=== PATIENT | female | born 1970 | race African-American/Black ===

== ENCOUNTER 2018-03-17 19:10 | Emergency (ER) | payer SELFPAY ==
[2018-03-17] MEDS ORDERED: TRAMADOL HCL 50 MG TABLET PO ONE (21:34)
[2018-03-17 22:06] VITALS: BP 184/104
== END 2018-03-17 22:03 | disposition home or self-care (01) ==
LOC: ER 19:10
DX: Z53.21 Procedure and treatment not carried out due to patient leaving prior to being seen by health care provider (principal); R09.89 Other specified symptoms and signs involving the circulatory and respiratory systems; R10.2 Pelvic and perineal pain

== ENCOUNTER 2018-03-27 09:32 | Emergency (ER) | payer SELFPAY ==
[2018-03-27 09:51] VITALS: BP 125/78
--- NOTE | 2018-03-27 10:12 | ER Document Report ---
ED General - General Chief Complaint: High Blood Pressure Stated Complaint: BLOOD PRESSURE ISSUE Time Seen by Provider: 03/27/18 10:12 Mode of Arrival: Ambulatory Information source: Patient, [facility] Records Notes: 48-year-old female with asthma, hypertension, schizophrenia presents with concern for elevated blood pressure that occurred yesterday. Patient states that she became very upset at work yesterday and remained upset all day and when she took her blood pressure at home she had systolic readings of 170. Patient states that she took her blood pressure medication which helped her elevated blood pressure but came in today to make sure that her blood pressure was normal. Patient denies headache, visual changes, slurred speech, chest pain, shortness of breath, difficulty with ambulation, weakness. TRAVEL OUTSIDE OF THE [place] IN LAST 30 DAYS: No - HPI Onset: Yesterday Onset/Duration: Gone Quality of pain: No pain Severity: None Associated symptoms: None Exacerbated by: Denies Relieved by: Denies Similar symptoms previously: Yes Recently seen / treated by doctor: Yes - Related Data Allergies/Adverse Reactions: ketorolac tromethamine [From Toradol] Allergy (Intermediate, Verified 03/27/18 10:04) Urticaria Penicillins Allergy (Intermediate, Verified 03/27/18 10:04) Hives ibuprofen Allergy (Verified 03/27/18 10:04) Past Medical History - General Information source: Patient - Social History Smoking Status: Never Smoker Frequency of alcohol use: None Drug Abuse: None Lives with: Family Family History: Reviewed & Not Pertinent, CAD Patient has suicidal ideation: No Patient has homicidal ideation: No - Past Medical History Cardiac Medical History: Reports: Hx Hypertension Pulmonary Medical History: Reports: Hx Asthma Neurological Medical History: Denies: Hx Seizures Renal/ Medical History: Reports: Hx Ovarian Cysts. Denies: Hx Peritoneal Dialysis GI Medical History: Denies: Hx Hepatitis Musculoskeletal Medical History: Reports Hx Arthritis, Reports Hx Musculoskeletal Trauma Psychiatric Medical History: Reports: Hx Anxiety, Hx Bipolar Disorder, Hx Depression, Hx Schizophrenia Traumatic Medical History: Reports: Hx Fractures Infectious Medical History: Denies: Hx Hepatitis Past Surgical History: Reports: Hx Section - c- sect x1, Hx Cholecystectomy - Immunizations Immunizations up to date: Yes Hx Diphtheria, Pertussis, Tetanus Vaccination: Yes Review of Systems - Review of Systems Notes: REVIEW OF SYSTEMS: CONSTITUTIONAL : Denies fever, chills, or sweats. Denies recent illness. Denies weight loss, recent hospitalizations. EENT: Denies visual changes, eye pain. Denies sore throat, oral lesions, difficulty swallowing. CARDIOVASCULAR: Denies chest pain. Denies palpitations. Denies lower extremity edema. RESPIRATORY: Denies cough. Denies shortness of breath, wheezing. GASTROINTESTINAL: Denies abdominal pain or distention. Denies nausea, vomiting, or diarrhea. Denies blood in vomitus, stools, or per rectum. Denies black, tarry stools. Denies constipation. GENITOURINARY: Denies difficulty urinating, painful urination, frequency, blood in urine, or vaginal discharge. MUSCULOSKELETAL: Denies back or neck pain or stiffness. Denies joint pain or swelling. SKIN: Denies rash, lesions or sores. HEMATOLOGIC : Denies easy bruising or bleeding. LYMPHATIC: Denies swollen glands. NEUROLOGICAL: Denies confusion or altered mental status. Denies loss of consciousness. Denies dizziness or lightheadedness. Denies headache. Denies weakness or paralysis. Denies problems difficulty with ambulation, slurred speech. Denies sensory loss, numbness, or tingling. Denies seizures. PSYCHIATRIC: Denies anxiety or stress. Denies depression, suicidal ideation, or homicidal ideation. Denies visual or auditory hallucinations. Physical Exam - Vital signs Vitals: Temp Pulse Resp BP Pulse Ox 98.2 F 77 16 125/78 100 03/27/18 09:47 03/27/18 09:47 03/27/18 09:47 03/27/18 09:47 03/27/18 09:47 - Notes Notes: PHYSICAL EXAMINATION: GENERAL: Well-appearing, well-nourished and in no acute distress. HEAD: Atraumatic, normocephalic. EYES: Pupils equal round and reactive to light, extraocular movements intact, conjunctiva are normal. ENT: Nares patent, oropharynx clear without exudates. Moist mucous membranes. NECK: Normal range of motion, supple without lymphadenopathy LUNGS: Breath sounds clear to auscultation bilaterally and equal. No wheezes rales or rhonchi. HEART: Regular rate and rhythm without murmurs ABDOMEN: Soft, nontender, nondistended abdomen. No guarding, no rebound. No masses appreciated. Female : deferred Musculoskeletal: Normal range of motion, no pitting or edema. No cyanosis. NEUROLOGICAL: Cranial nerves grossly intact. Normal speech, normal gait. Normal sensory, motor exams PSYCH: Normal mood, normal affect. SKIN: Warm, Dry, normal turgor, no rashes or lesions noted. Course - Re-evaluation Re-evalutation: Temp Pulse Resp BP Pulse Ox 98.2 F 77 16 125/78 100 03/27/18 09:47 03/27/18 09:47 03/27/18 09:47 03/27/18 09:47 03/27/18 09:47 03/27/18 10:22 48-year-old female presents with concern for elevated blood pressure reading yesterday. Vital signs reviewed upon arrival and within normal limits today. Patient has a normal physical exam and has no current complaints. Blood pressure reading was 125/78. Patient was evaluated and treated as appropriate for the patient's presenting symptoms and complaint, with consideration of any critical or life threatening conditions that may be associated with their obtained history and exam as noted above. All results were discussed with carley beyer. Patient provided the opportunity to ask questions, and express concerns. Patient was educated on treatments based on their presumed diagnosis as noted above. At this time we will discharge the patient with return precautions and follow-up recommendations. Verbal discharge instructions given a the bedside. Medication warnings reviewed. Patient is in agreement with this plan and has verbalized understanding of return precautions. After careful consideration I feel that that patient can be safely discharged from the emergency department, they were advised to followup with a primary c are physician in 2-3 days. Dictation on this chart was performed using voice recognition software and may result in unintended grammatical, spelling, syntax or errors. - Vital Signs Vital signs: Temp Pulse Resp BP Pulse Ox 98.2 F 77 16 125/78 100 03/27/18 09:47 03/27/18 09:47 03/27/18 09:47 03/27/18 09:47 03/27/18 09:47 Discharge - Discharge Clinical Impression: Concern for elevated blood pressure Hypertension Qualifiers: Hypertension type: unspecified Qualified Code(s): I10 - Essential (primary) hypertension Condition: Good Disposition: HOME, SELF-CARE Instructions: High Blood Pressure ([facility]) Additional Instructions: Follow up with your [id number] hours for further care or return to the ED IMMEDIATELY if symptoms worsen or you have any concerns. If you cannot afford to follow up with your primary care physician a list of low cost clinics have been provided at the end of your discharge papers as well. Most prescribed medications have multiple side effects. The safest thing to do is when filling your prescription speak to your pharmacist regarding possible interactions with your normal home medications and over the counter medications such as Ibuprofen, Tylenol, Benadryl. If you experience any symptoms that cause you discomfort or concern you should discontinue the medication immediately and return to the emergency room or call your primary care physician.
== END 2018-03-27 10:19 | disposition home or self-care (01) ==
LOC: ER 09:32
DX: I10 Essential (primary) hypertension (principal); Z88.6 Allergy status to analgesic agent; Z88.0 Allergy status to penicillin; Z90.49 Acquired absence of other specified parts of digestive tract
CPT/HCPCS: 99283

== ENCOUNTER 2018-05-28 10:21 | Emergency (ER) | payer SELFPAY ==
[2018-05-28] MEDS ORDERED: ONDANSETRON 4 MG TAB.RAPDIS PO ONE (11:01)
--- NOTE | 2018-05-28 11:03 | ER Document Report ---
ED Medical Screen (RME) - General Chief Complaint: Abdominal Pain Stated Complaint: ABDOMINAL PAIN Time Seen by Provider: 05/28/18 10:56 Primary Care Provider: ARTHUR JENSEN PA-C [Primary Care Provider] - Follow up as needed Mode of Arrival: Ambulatory Information source: Patient TRAVEL OUTSIDE OF THE [place] IN LAST 30 DAYS: No - HPI Patient complains to provider of: abdo pain Notes: 05/28/18 11:02 Patient with complaints of upper abdominal pain. Pains been intermittent for the last week. She has nausea, no vomiting or diarrhea. No dysuria. No chest pain or shortness of breath. She had her gallbladder removed. She denies any pain currently. She states that she has been taking ibuprofen which did seem to help some with the pain. She is wanted to make sure she did not have anything abnormal going on. She does have a history of pancreatitis. Exam Nontoxic, no distress. No focal abdominal tenderness on limited abdominal exam at this time. Plan CBC, CMP, lipase, urine, urine . Since she is not having tenderness at this moment, will await lab work and further evaluation to determine if imaging is indicated at this time. Jamie RASHID. An initial examination was made on the patient as part of the triage process, and it was determined a more comprehensive evaluation was necessary. Initial labs were ordered and patient was transferred to another provider in the ED who assumed care and finished evaluation and plan. - Related Data Allergies/Adverse Reactions: ketorolac tromethamine [From Toradol] Allergy (Intermediate, Verified 05/28/18 10:25) Urticaria Penicillins Allergy (Intermediate, Verified 05/28/18 10:25) Hives ibuprofen Allergy (Verified 05/28/18 10:25) Past Medical History - Past Medical History Cardiac Medical History: Reports: Hx Hypertension Pulmonary Medical History: Reports: Hx Asthma Neurological Medical History: Denies: Hx Seizures Renal/ Medical History: Reports: Hx Ovarian Cysts. Denies: Hx Peritoneal Dialysis GI Medical History: Denies: Hx Hepatitis Musculoskeltal Medical History: Reports Hx Arthritis, Reports Hx Musculoskeletal Trauma Psychiatric Medical History: Reports: Hx Anxiety, Hx Bipolar Disorder, Hx Depression, Hx Schizophrenia Traumatic Medical History: Reports: Hx Fractures Infectious Medical History: Denies: Hx Hepatitis Past Surgical History: Reports: Hx Section - c- sect x1, Hx Cholecystectomy - Immunizations Immunizations up to date: Yes Hx Diphtheria, Pertussis, Tetanus Vaccination: Yes Physical Exam - Vital signs Vitals: Temp Pulse Resp BP Pulse Ox 98.4 F 73 16 145/91 H 99 05/28/18 10:05/28/18 10:29 05/28/18 10:05/28/18 10:05/28/18 10:29 Course - Vital Signs Vital signs: Temp Pulse Resp BP Pulse Ox 98.4 F 73 16 145/91 H 99 05/28/18 10:29 05/28/18 10:29 05/28/18 10:29 05/28/18 10:29 05/28/18 10:29 Doctor's Discharge - Discharge Referrals: ARTHUR JENSEN, [facility] [Primary Care Provider] - Follow up as needed
[2018-05-28 11:52] LABS: ABSOLUTE EOSINOPHILS # (AUTO) 0.1 10^3/uL (0.0-0.6); ABSOLUTE LYMPHOCYTES (AUTO) 3.2 10^3/uL (0.5-4.7); ABSOLUTE MONOCYTES (AUTO) 0.5 10^3/uL (0.1-1.4); BASOPHILS % (AUTO) 0.5 % (0-2); EOSINOPHILS % (AUTO) 1.5 % (0-6); HEMATOCRIT 38.3 % (36.0-47.0); LYMPHOCYTES % (AUTO) 46.6 % (13-45); MEAN CORPUSCULAR HEMOGLOBIN 28.8 pg (27.0-33.4); MEAN CORPUSCULAR HGB CONC 33.9 g/dL (32.0-36.0); MEAN CORPUSCULAR VOLUME 85 fl (80-97); MONOCYTES % (AUTO) 7.7 % (3-13); PLATELET COUNT 404 10^3/uL (150-450); SEGMENTED NEUTROPHILS % (AUTO) 43.7 % (42-78); TOTAL CELLS COUNTED % (AUTO) 100 %; WHITE BLOOD COUNT 6.8 10^3/uL (4.0-10.5)
[2018-05-28 11:55] LABS: APPEARANCE,URINE SLIGHTLY-CLOUDY; BILIRUBIN,URINE NEGATIVE (NEGATIVE); COLOR,URINE YELLOW; GLUCOSE, URINE NEGATIVE (NEGATIVE); KETONES,URINE NEGATIVE (NEGATIVE); LEUKOCYTE ESTERASE,URINE TRACE (NEGATIVE); NITRITE,URINE NEGATIVE (NEGATIVE); PROTEIN,URINE NEGATIVE (NEGATIVE); URINE SPECIFIC GRAVITY 1.028
[2018-05-28 12:11] LABS: ALANINE AMINOTRANSFERASE 23 U/L (9-52); ALBUMIN 3.8 g/dL (3.5-5.0); ALKALINE PHOSPHATASE 69 U/L (38-126); ANION GAP 7 (5-19); ASPARTATE AMINO TRANSFERASE 15 U/L (14-36); BILIRUBIN,DIRECT 0.2 mg/dL (0.0-0.4); BILIRUBIN,TOTAL 0.4 mg/dL (0.2-1.3); BLOOD UREA NITROGEN 12 mg/dL (7-20); CALCIUM 9.3 mg/dL (8.4-10.2); CARBON DIOXIDE 31 mmol/L (22-30); CHLORIDE 102 mmol/L (98-107); GLUCOSE 91 mg/dL (75-110); LIPASE 89.5 U/L (23-300); POTASSIUM 3.7 mmol/L (3.6-5.0); SODIUM 140.3 mmol/L (137-145)
[2018-05-28] MEDS ORDERED: AZITHROMYCIN 1 GM SUSP PACKET PO ONE (12:31)
--- NOTE | 2018-05-28 12:37 | ER Document Report ---
ED General - General Chief Complaint: Abdominal Pain Stated Complaint: ABDOMINAL PAIN Time Seen by Provider: 05/28/18 10:56 Primary Care Provider: ARTHUR JENSEN PA-C [Primary Care Provider] - Follow up in 3-5 days Mode of Arrival: Ambulatory TRAVEL OUTSIDE OF THE [place] IN LAST 30 DAYS: No - HPI Notes: Patient is a 48-year-old female that presents to the emergency department for chief complaint of abdominal pain. Patient reports epigastric abdominal pain that is burning and intermittent in nature. It has been intermittent for the last 3 weeks. She states it is worse after eating. She denies associated nausea or vomiting but states she does feel like she is gagging sometimes. She denies any associated diarrhea fevers or chills. She does have a history of GERD and states it feels similar. She is not currently on any medications for GERD. She has not taken any [id number] medications for her symptoms. Patient also requesting STD testing stating she just caught her cheating on her. She denies any symptoms of STD including pelvic pain vaginal discharge or vaginal bleeding. She does have some mild dysuria and reports history of UTIs in the past. Past Medical History: GERD Past Surgical History: Reviewed in chart Social History: Denies tobacco and alcohol use Family History: Reviewed and noncontributory for presenting illness Allergies: Reviewed, see documented allergy list. REVIEW OF SYSTEMS: CONSTITUTIONAL : No fever No chills No diaphoresis No recent illness EENT: No vision changes No congestion No sore throat CARDIOVASCULAR: No chest pain No palpitations RESPIRATORY: No shortness of breath No cough No difficulty breathing GASTROINTESTINAL: abdominal pain No nausea No vomiting No diarrhea GENITOURINARY: dysuria No hematuria No difficulty urinating MUSCULOSKELETAL: No back pain No leg pain No arm pain SKIN: No rashes No lesions LYMPHATIC: No swollen, enlarged glands. NEUROLOGICAL: No lightheadedness No headache No weakness No paresthesias PSYCHIATRIC: No anxiety No depression PHYSICAL EXAMINATION: Vital signs reviewed, nursing noted reviewed. GENERAL: Well-appearing, well-nourished and in no acute distress. HEAD: Atraumatic, normocephalic. EYES: Eyes appear normal, extraocular movements intact, sclera anicteric, conjunctiva are normal. ENT: nares patent, oropharynx clear without exudates. Moist mucous membranes. NECK: Normal range of motion, supple without lymphadenopathy LUNGS: Breath sounds clear to auscultation bilaterally and equal. No wheezes rales or rhonchi. HEART: Regular rate and rhythm without murmurs ABDOMEN: Soft, nontender, normoactive bowel sounds. No rebound, guarding, or rigidity. No masses appreciated. : Normal external genitalia. No vaginal discharge. No cervical motion tenderness or adnexal tenderness/fullness. EXTREMITIES: Nontender, good range of motion, no pitting or edema. NEUROLOGICAL: No focal neurological deficits. Moves all extremities spontaneously Motor and sensory grossly intact on exam. PSYCH: Normal mood, normal affect. SKIN: Warm, Dry, normal turgor, no rashes or lesions noted on exposed skin - Related Data Allergies/Adverse Reactions: ketorolac tromethamine [From Toradol] Allergy (Intermediate, Verified 05/28/18 10:25) Urticaria Penicillins Allergy (Intermediate, Verified 05/28/18 10:25) Hives ibuprofen Allergy (Verified 05/28/18 10:25) Past Medical History - General Information source: Patient - Social History Smoking Status: Never Smoker Family History: Reviewed & Not Pertinent, CAD Patient has suicidal ideation: No Patient has homicidal ideation: No - Past Medical History Cardiac Medical History: Reports: Hx Hypertension Pulmonary Medical History: Reports: Hx Asthma Neurological Medical History: Denies: Hx Seizures Renal/ Medical History: Reports: Hx Ovarian Cysts. Denies: Hx Peritoneal Dialysis GI Medical History: Reports: Hx Gastroesophageal Reflux Disease. Denies: Hx Hepatitis Musculoskeletal Medical History: Reports Hx Arthritis, Reports Hx Musculoskeletal Trauma Psychiatric Medical History: Reports: Hx Anxiety, Hx Bipolar Disorder, Hx Depression, Hx Schizophrenia Traumatic Medical History: Reports: Hx Fractures Infectious Medical History: Denies: Hx Hepatitis Past Surgical History: Reports: Hx Section - c- sect x1, Hx Johanne cystectomy - Immunizations Immunizations up to date: Yes Hx Diphtheria, Pertussis, Tetanus Vaccination: Yes Physical Exam - Vital signs Vitals: Temp Pulse Resp BP Pulse Ox 98.4 F 73 16 145/91 H 99 05/28/18 10:29 05/28/18 10:29 05/28/18 10:29 05/28/18 10:29 05/28/18 10:29 Course - Re-evaluation Re-evalutation: 05/28/18 13:03 Vitals reviewed. Nursing notes reviewed. Patient was prophylactically treated for gonorrhea and chlamydia at her request. Pelvic exam was performed and GC chlamydia cultures are pending. Patient's lab work shows no acute pancreatitis. She has normal electrolytes with normal renal function. She has no leukocytosis or sepsis. Patient does have a urinary tract infection that will be treated with Macrobid. She will be given omeprazole for her epigastric discomfort. She was counseled on dietary changes. She was counseled on return precautions. Laboratory 05/28/18 05/28/18 05/28/18 11:31 11:31 11:31 WBC 6.8 RBC 4.50 Hgb 13.0 Hct 38.3 MCV 85 MCH 28.8 MCHC 33.9 RDW 15.0 H Plt Count 404 Seg Neutrophils % 43.7 Lymphocytes % 46.6 H Monocytes % 7.7 Eosinophils % 1.5 Basophils % 0.5 Absolute Neutrophils 3.0 Absolute Lymphocytes 3.2 Absolute Monocytes 0.5 Absolute Eosinophils 0.1 Absolute Basophils 0.0 Sodium 140.3 Potassium 3.7 Chloride 102 Carbon Dioxide 31 H Anion Gap 7 BUN 12 Creatinine 0.74 Est GFR ( Amer) > 60 Est GFR (Non-Af Amer) > 60 Glucose 91 Calcium 9.3 Total Bilirubin 0.4 Direct Bilirubin 0.2 Neonat Total Bilirubin Not Reportable Neonat Direct Bilirubin Not Reportable Neonat Indirect Bili Not Reportable AST 15 ALT 23 Alkaline Phosphatase 69 Total Protein 7.0 Albumin 3.8 Lipase 89.5 Urine Color YELLOW Urine Appearance SLIGHTLY-CLOUDY Urine pH 5.0 Ur Specific [place] 1.028 Urine Protein NEGATIVE Urine Glucose (UA) NEGATIVE Urine Ketones NEGATIVE Urine Blood NEGATIVE Urine Nitrite NEGATIVE Urine Bilirubin NEGATIVE Urine Urobilinogen 2.0 H Ur Leukocyte Esterase TRACE H Urine WBC (Auto) 15 Urine RBC (Auto) 2 Urine Bacteria (Auto) 3+ Squamous Epi Cells Auto 8 Urine Mucus (Auto) MANY Urine Ascorbic Acid NEGATIVE Urine HCG, Qual NEGATIVE - Vital Signs Vital signs: Temp Pulse Resp BP Pulse Ox 98.4 F 73 16 145/91 H 99 05/28/18 10:29 05/28/18 10:29 05/28/18 10:29 05/28/18 10:29 05/28/18 10:29 - Laboratory Result Diagrams: 05/28/18 11:31 05/28/18 11:31 Laboratory results interpreted by me: 0405/28/18 05/28/18 11:31 11:31 11:31 RDW 15.0 H Lymphocytes % 46.6 H Carbon Dioxide 31 H Urine Urobilinogen 2.0 H Ur Leukocyte Esterase TRACE H Discharge - Discharge Clinical Impression: Epigastric abdominal pain, Acute UTI Condition: Stable Disposition: HOME, SELF-CARE Instructions: Abdominal Pain ([facility]), Urinary Tract Infection ([facility]) Additional Instructions: Please return to the emergency department if you have any worsening, or concern of your symptoms. Please return to the emergency department if you develop chest pain, difficulty breathing, severe abdominal pain, or ongoing vomiting. Please follow-up with your primary care physician in 2-3 days and any other recommended physicians. If prescribed, take all medications as directed. If you have any questions or concerns do not hesitate to return the emergency department for evaluation. You were treated for gonorrhea and chlamydia today. Your culture results will return later today. You can call medical records for your results. If they were positive you will likely receive a phone call in the next few days. Prescriptions: Nitrofurantoin Macrocrystal [Macrodantin] 100 mg PO Q6 5 Days capsule Omeprazole 40 mg PO DAILY #30 capsule. Referrals: ARTHUR JENSEN PA-C [Primary Care Provider] - Follow up in 3-5 days
[2018-05-28 13:13] LABS: EPITHELIALS (WET MOUNT) 4+ EPITHELIALS SEEN; T.VAGINALIS (WET MOUNT) NO TRICHOMONAS SEEN; WBCS (WET MOUNT) RARE WBCS SEEN; YEAST (WET MOUNT) NO YEAST SEEN
[2018-05-28 13:45] VITALS: BP 132/79
[2018-05-28 14:44] LABS: CHLAM PCR NOT DETECTED (NOT DETECT); GON PCR NOT DETECTED (NOT DETECT)
== END 2018-05-28 13:49 | disposition home or self-care (01) ==
LOC: ER 10:21
DX: N39.0 Urinary tract infection, site not specified (principal); R10.13 Epigastric pain; R30.0 Dysuria; I10 Essential (primary) hypertension; J45.909 Unspecified asthma, uncomplicated; Z20.2 Contact with and (suspected) exposure to infections with a predominantly sexual mode of transmission; Z90.49 Acquired absence of other specified parts of digestive tract; Z87.19 Personal history of other diseases of the digestive system; Z88.8 Allergy status to other drugs, medicaments and biological substances; Z88.0 Allergy status to penicillin; Z88.6 Allergy status to analgesic agent
CPT/HCPCS: 99284; 36415; 87210; 83690; 85025; 81025; 80053; 81001; 87491; 87591; S0119; Q0144

== ENCOUNTER 2018-05-30 20:57 | Emergency (ER) | payer SELFPAY ==
[2018-05-30 21:28] VITALS: BP 159/82
[2018-05-31] MEDS ORDERED: PROMETHAZINE HCL 25 MG TABLET PO ONE (00:22)
[2018-05-31] MEDS ORDERED: SUCRALFATE 1 GM TABLET PO ONE (00:22)
[2018-05-31] MEDS ORDERED: OXYCODONE-ACETAMINOPHEN 5-325 MG TABLET PO ONE (00:22)
--- NOTE | 2018-05-31 00:24 | ER Document Report ---
ED Medical Screen (RME) - General Chief Complaint: Upper Abdominal Pain Stated Complaint: UPPER EPIGASTRIC PAIN,CHILLS,NAUSEA,BACK PAIN Time Seen by Provider: 05/31/18 00:14 Primary Care Provider: ARTHUR JENSEN PA-C [Primary Care Provider] - Follow up as needed Notes: 48-year-old female, chief complaint of sharp pain in her upper abdomen, intermittent burning, sometimes worse after eating, she also has flank pain. Seen here 2 days ago, diagnosed with "kidney infection" placed on omeprazole and Macrobid. States symptoms have been getting worse. Denies vomiting, fever. She has had a cholecystectomy. TRAVEL OUTSIDE OF THE [place] IN LAST 30 DAYS: No - Related Data Allergies/Adverse Reactions: ketorolac tromethamine [From Toradol] Allergy (Intermediate, Verified 05/28/18 10:25) Urticaria Penicillins Allergy (Intermediate, Verified 05/28/18 10:25) Hives acetaminophen [From Vicodin] Allergy (Verified 05/30/18 21:01) hydrocodone [From Vicodin] Allergy (Verified 05/30/18 21:01) ibuprofen Allergy (Verified 05/28/18 10:25) Past Medical History - Past Medical History Cardiac Medical History: Reports: Hx Hypertension Pulmonary Medical History: Reports: Hx Asthma Neurological Medical History: Denies: Hx Seizures Renal/ Medical History: Reports: Hx Ovarian Cysts. Denies: Hx Peritoneal Dialysis GI Medical History: Reports: Hx Gastroesophageal Reflux Disease. Denies: Hx Hepatitis Musculoskeltal Medical History: Reports Hx Arthritis, Reports Hx Musculoskeletal Trauma Psychiatric Medical History: Reports: Hx Anxiety, Hx Bipolar Disorder, Hx Depression, Hx Schizophrenia Traumatic Medical History: Reports: Hx Fractures Infectious Medical History: Denies: Hx Hepatitis Past Surgical History: Reports: Hx Section - c- sect x1, Hx Cholecystectomy - Immunizations Immunizations up to date: Yes Hx Diphtheria, Pertussis, Tetanus Vaccination: Yes Physical Exam - Vital signs Vitals: Temp Pulse Resp BP Pulse Ox 98.6 F 68 16 159/82 H 99 05/30/18 21:27 05/30/18 21:27 05/30/18 21:27 05/30/18 21:27 05/30/18 21:27 - Abdominal Tenderness: Tender - Tender with wincing in the epigastric area, otherwise unremarkable abdomen Course - Vital Signs Vital signs: Temp Pulse Resp BP Pulse Ox 98.6 F 68 16 159/82 H 99 05/30/18 21:27 05/30/18 21:27 05/30/18 21:27 05/30/18 21:27 05/30/18 21:27 Doctor's Discharge - Discharge Referrals: ARTHUR JENSEN PA-C [Primary Care Provider] - Follow up as needed
[2018-05-31 01:17] LABS: ABSOLUTE BASOPHILS # (AUTO) 0.1 10^3/uL (0.0-0.2); ABSOLUTE EOSINOPHILS # (AUTO) 0.2 10^3/uL (0.0-0.6); ABSOLUTE LYMPHOCYTES (AUTO) 4.7 10^3/uL (0.5-4.7); ABSOLUTE MONOCYTES (AUTO) 0.6 10^3/uL (0.1-1.4); ABSOLUTE NEUT (AUTO) 3.7 10^3/uL (1.7-8.2); BASOPHILS % (AUTO) 0.8 % (0-2); EOSINOPHILS % (AUTO) 1.9 % (0-6); HEMATOCRIT 36.4 % (36.0-47.0); HEMOGLOBIN 12.3 g/dL (12.0-15.5); LYMPHOCYTES % (AUTO) 50.7 % (13-45); MEAN CORPUSCULAR HEMOGLOBIN 28.6 pg (27.0-33.4); MEAN CORPUSCULAR HGB CONC 33.7 g/dL (32.0-36.0); MEAN CORPUSCULAR VOLUME 85 fl (80-97); MONOCYTES % (AUTO) 6.9 % (3-13); PLATELET COUNT 385 10^3/uL (150-450); RED BLOOD COUNT 4.29 10^6/uL (3.72-5.28); RED CELL DISTRIBUTION WIDTH 15.1 % (11.5-14.0); SEGMENTED NEUTROPHILS % (AUTO) 39.7 % (42-78); TOTAL CELLS COUNTED % (AUTO) 100 %; WHITE BLOOD COUNT 9.3 10^3/uL (4.0-10.5)
[2018-05-31 01:20] LABS: APPEARANCE,URINE SLIGHTLY-CLOUDY; BILIRUBIN,URINE NEGATIVE (NEGATIVE); COLOR,URINE YELLOW; GLUCOSE, URINE NEGATIVE (NEGATIVE); KETONES,URINE NEGATIVE (NEGATIVE); LEUKOCYTE ESTERASE,URINE NEGATIVE (NEGATIVE); NITRITE,URINE NEGATIVE (NEGATIVE); PROTEIN,URINE NEGATIVE (NEGATIVE); URINE SPECIFIC GRAVITY 1.013; UROBILINOGEN,URINE NEGATIVE mg/dL (<2.0)
[2018-05-31] MEDS ORDERED: LIDOCAINE 2% VISCOUS SOLN 20 ML UDCUP PO ONE (01:21)
[2018-05-31] MEDS ORDERED: METOCLOPRAMIDE HCL ORAL SOLN 10 MG/10 ML UDCUP PO ONE (01:21)
[2018-05-31] MEDS ORDERED: MAG HYDROX/AL HYDROX/SIMETH SUSP 30 ML UDCUP PO ONE (01:21)
[2018-05-31] MEDS ORDERED: FAMOTIDINE 20 MG TABLET PO ONE (01:22)
[2018-05-31 01:34] LABS: ALANINE AMINOTRANSFERASE 17 U/L (9-52); ALKALINE PHOSPHATASE 65 U/L (38-126); ANION GAP 9 (5-19); ASPARTATE AMINO TRANSFERASE 17 U/L (14-36); BILIRUBIN,DIRECT 0.2 mg/dL (0.0-0.4); BILIRUBIN,TOTAL 0.3 mg/dL (0.2-1.3); BLOOD UREA NITROGEN 10 mg/dL (7-20); CALCIUM 9.6 mg/dL (8.4-10.2); CARBON DIOXIDE 24 mmol/L (22-30); CHLORIDE 107 mmol/L (98-107); GLUCOSE 76 mg/dL (75-110); LIPASE 81.5 U/L (23-300); POTASSIUM 3.6 mmol/L (3.6-5.0); SODIUM 139.9 mmol/L (137-145); TOTAL PROTEIN 7.3 g/dL (6.3-8.2)
--- NOTE | 2018-05-31 01:57 | ER Document Report ---
ED General - General Chief Complaint: Upper Abdominal Pain Stated Complaint: UPPER EPIGASTRIC PAIN,CHILLS,NAUSEA,BACK PAIN Time Seen by Provider: 05/31/18 00:14 Primary Care Provider: ARTHUR JENSEN PA-C [Primary Care Provider] - Follow up in 3-5 days Notes: Patient is a 48-year-old female without chronic medical problems, prior surgical history of a cholecystectomy who presents with 3 days of epigastric abdominal pain with associated nausea but no vomiting. Patient was seen in the emergency department several days ago for similar circumstances, has been taking omeprazole since that time without any improvement. Regards the pain is being a severe, constant, throbbing pain to her upper abdomen. States that it got worse than after taking a dose of ibuprofen prior to heading to work. Nothing has been noted to improve her symptoms. She has not had vomiting but is been quite nauseated. No hematemesis, melena or hematochezia. No fever or constitutional symptoms. Denies any chest pain or shortness of breath. Has not seen her primary care physician regarding today's concerns. TRAVEL OUTSIDE OF THE [place] IN LAST 30 DAYS: No - Related Data Allergies/Adverse Reactions: ketorolac tromethamine [From Toradol] Allergy (Intermediate, Verified 05/31/18 00:44) Urticaria Penicillins Allergy (Intermediate, Verified 05/31/18 00:44) Hives hydrocodone [From Vicodin] Allergy (Verified 05/31/18 00:44) ibuprofen Allergy (Verified 05/31/18 00:44) Past Medical History - General Information source: Patient - Social History Smoking Status: Former Smoker Frequency of alcohol use: None Drug Abuse: None Lives with: Family Family History: Reviewed & Not Pertinent, CAD Patient has suicidal ideation: No Patient has homicidal ideation: No - Past Medical History Cardiac Medical History: Reports: Hx Hypertension Pulmonary Medical History: Reports: Hx Asthma Neurological Medical History: Denies: Hx Seizures Renal/ Medical History: Reports: Hx Ovarian Cysts. Denies: Hx Peritoneal Dialysis GI Medical History: Reports: Hx Gastroesophageal Reflux Disease. Denies: Hx Hepatitis Musculoskeletal Medical History: Reports Hx Arthritis, Reports Hx Musculoskeletal Trauma Psychiatric Medical History: Reports: Hx Anxiety, Hx Bipolar Disorder, Hx Depression, Hx Schizophrenia Traumatic Medical History: Reports: Hx Fractures Infectious Medical History: Denies: Hx Hepatitis Past Surgical History: Reports: Hx Section - c- sect x1, Hx Cholecystectomy - Immunizations Immunizations up to date: Yes Hx Diphtheria, Pertussis, Tetanus Vaccination: Yes Review of Systems - Review of Systems Notes: Constitutional: Negative for fever. HENT: Negative for sore throat. Eyes: Negative for visual changes. Cardiovascular: Negative for chest pain. Respiratory: Negative for shortness of breath. Gastrointestinal: Positive for upper abdominal pain nausea Genitourinary: Negative for dysuria. Musculoskeletal: Negative for back pain. Skin: Negative for rash. Neurological: Negative for headaches, weakness or numbness. 10 point ROS negative except as marked above and in HPI. Physical Exam - Vital signs Vitals: Temp Pulse Resp BP Pulse Ox 98.6 F 68 16 159/82 H 99 05/30/18 21:27 05/30/18 21:27 05/30/18 21:27 05/30/18 21:27 05/30/18 21:27 Interpretation: Hypertensive Notes: PHYSICAL EXAMINATION: GENERAL: Well-appearing, well-nourished and in no acute distress. HEAD: Atraumatic, normocephalic. EYES: Pupils equal round and reactive to light, extraocular movements intact, sclera anicteric, conjunctiva are normal. ENT: nares patent, oropharynx clear without exudates. Moist mucous membranes. NECK: Normal range of motion, supple without lymphadenopathy LUNGS: Breath sounds clear to auscultation bilaterally and equal. No wheezes rales or rhonchi. HEART: Regular rate and rhythm without murmurs ABDOMEN: Soft, nontender, normoactive bowel sounds. No guarding, no rebound. No masses appreciated. EXTREMITIES: Normal range of motion, no pitting or edema. No cyanosis. NEUROLOGICAL: No focal neurological deficits. Moves all extremities spontaneously and on command. PSYCH: Normal mood, normal affect. SKIN: Warm, Dry, normal turgor, no rashes or lesions noted. Course - Re-evaluation Re-evalutation: 05/31/18 01:53 Patient presents with epigastric abdominal pain with associated reflux symptoms most consistent with likely gastritis. Patient has no focal abdominal tenderness on examination. Patient has a remote history of a cholecystectomy removing this from the differential. Lipase is normal. No LFT changes. Based on history and exam, I do not suspect ACS, pulmonary embolus, SBO, mesenteric ischemia, acute pancreatitis, biliary pathology, or an abdominal aortic dissection. Patient has been consuming large quantities of ibuprofen for the past 3 weeks which was likely the trigger for her symptoms. EKG and single troponin obtained given patient's female status and several risk factors to exclude an atypical presentation of ACS on these are normal. Patient has had improvement of symptoms here with a GI cocktail. At this time will discharge with return precautions and follow-up recommendations. Verbal discharge instructions given a the bedside and opportunity for questions given. Medication warnings reviewed. Patient is in agreement with this plan and has verbalized understanding of return precautions and the need for primary care follow-up in the next 24-72 hours. - Vital Signs Vital signs: Temp Pulse Resp BP Pulse Ox 98.6 F 68 16 159/82 H 99 05/30/18 21:27 05/30/18 21:27 05/30/18 21:27 05/30/18 21:27 05/30/18 21:27 - Laboratory Result Diagrams: 05/31/18 00:41 05/31/18 00:41 Laboratory results interpreted by me: 05/31/18 00:41 RDW 15.1 H Seg Neutrophils % 39.7 L Lymphocytes % 50.7 H Discharge - Discharge Clinical Impression: Upper abdominal pain, Gastritis/duodenitis Condition: Good Disposition: HOME, SELF-CARE Additional Instructions: Your symptoms appear to be most consistent with stomach or upper intestinal irritation. Your labs including heart markers are all normal today. Please begin taking famotidine 40 mg in the morning and 40 mg at night. Take Carafate prior to meals. You may also take medicine such as Pepto-Bismol or Tums to assist with your pain. Please return to emergency department immediately if you have worsening of your pain, shortness of breath, vomiting, become unable to exert yourself due to pain or difficulty breathing, you pass out, or have any pain that radiates into your arms, jaw, or back. Please also return if you have any additional symptoms that are concerning to you. As we have discussed, the most important thing is lifestyle changes. You need to avoid smoking, sodas, tea, coffee, alcohol, spicy foods, and acidic foods such as citrus fruits, tomato based products, berries, and most fruit juices. Prescriptions: Famotidine 40 mg PO BID #60 tablet Sucralfate [Carafate 1 gm Tablet] 1 gm PO ACHS #120 tablet Forms: Return to Work Referrals: ARTHUR JENSEN, IAN [Primary Care Provider] - Follow up in 3-5 days
--- NOTE | 2018-05-31 08:57 | EKG REPORT ---
SEVERITY:- NORMAL ECG - SINUS RHYTHM : Confirmed by: Sadiq Whitman MD 31-May-2018 08:56:34
== END 2018-05-31 02:56 | disposition home or self-care (01) ==
LOC: ER 20:57
DX: K29.70 Gastritis, unspecified, without bleeding (principal); R10.10 Upper abdominal pain, unspecified; R10.13 Epigastric pain; R11.0 Nausea; M54.9 Dorsalgia, unspecified; Z88.0 Allergy status to penicillin; Z88.6 Allergy status to analgesic agent
CPT/HCPCS: 93005; 99284; 36415; 87086; 83690; 85025; 81025; 80053; 81001; 84484; 93010; J3490

== ENCOUNTER 2018-07-31 10:52 | Emergency (ER) | payer SELFPAY ==
[2018-07-31 11:00] VITALS: BP 140/84
[2018-07-31] MEDS ORDERED: PREDNISONE 20 MG TABLET PO ONE (11:46)
[2018-07-31] MEDS ORDERED: TRAMADOL HCL 50 MG TABLET PO ONE (11:47)
--- NOTE | 2018-07-31 11:51 | ER Document Report ---
HPI - HPI Patient complains to provider of: knee pain Time Seen by Provider: 07/31/18 11:46 Onset: Other - 3 wks Onset/Duration: Persistent Quality of pain: Achy Pain Level: 5 Context: Patient presents complaining of a flareup of her right knee pain. Patient states she has a history of a patellar injury and previous dislocation in the past. Patient was advised that she would have arthritis to this joint. Patient denies any new injury or fever. Patient does complain of pain and swelling to the joint. Patient states that she had been taking pain medicine but is out of her medicine at this time. Associated Symptoms: Other - Right knee pain Exacerbated by: Standing, Movement, Walking Relieved by: Denies Similar symptoms previously: Yes Recently seen / treated by doctor: No - ROS ROS below otherwise negative: Yes Systems Reviewed and Negative: Yes All other systems reviewed and negative - CONSTITUTIONAL Constitutional: DENIES: Fever, Chills - NEURO Neurology: DENIES: Weakness - GASTROINTESTINAL Gastrointestinal: DENIES: Nausea - REPRODUCTIVE Reproductive: DENIES: : - MUSCULOSKELETAL Musculoskeletal: REPORTS: Extremity pain, Swelling - DERM Skin Color: Normal Skin Problems: None Past Medical History - General Information source: Patient - Social History Smoking Status: Never Smoker Chew tobacco use (# tins/day): No Frequency of alcohol use: None Drug Abuse: None Occupation: [employer] Family History: Reviewed & Not Pertinent, CAD Patient has suicidal ideation: No Patient has homicidal ideation: No - Past Medical History Cardiac Medical History: Reports: Hx Hypertension Pulmonary Medical History: Reports: Hx Asthma Neurological Medical History: Denies: Hx Seizures Renal/ Medical History: Reports: Hx Ovarian Cysts. Denies: Hx Peritoneal Dialysis GI Medical History: Reports: Hx Gastroesophageal Reflux Disease. Denies: Hx Hepatitis Musculoskeletal Medical History: Reports Hx Arthritis, Reports Hx Musculoskeletal Trauma Psychiatric Medical History: Reports: Hx Anxiety, Hx Bipolar Disorder, Hx Depression, Hx Schizophrenia Traumatic Medical History: Reports: Hx Fractures Infectious Medical History: Denies: Hx Hepatitis Past Surgical History: Reports: Hx Section - c- sect x1, Hx Cholecystectomy - Immunizations Immunizations up to date: Yes Hx Diphtheria, Pertussis, Tetanus Vaccination: Yes Vertical Provider Document - CONSTITUTIONAL Agree With Documented VS: Yes Exam Limitations: No Limitations General Appearance: WD/WN, No Apparent Distress - INFECTION CONTROL TRAVEL OUTSIDE OF THE [place] IN LAST 30 DAYS: No - HEENT HEENT: Atraumatic, Normocephalic - NECK Neck: Normal Inspection, Supple. negative: Lymphadenopathy-Left, Ly mphadenopathy-Right - RESPIRATORY Respiratory: Breath Sounds Normal, No Respiratory Distress - CARDIOVASCULAR Cardiovascular: Regular Rate, Regular Rhythm Pulses: Normal: Dorsalis pedis - MUSCULOSKELETAL/EXTREMETIES Musculoskeletal/Extremeties: MAEW, Tender - Right knee joint tenderness with mild effusion, normal skin color and temperature overlying joint. Subtle swelling to the popliteal area., Edema. negative: Eccymosis - NEURO Level of Consciousness: Awake, Alert, Appropriate Motor/Sensory: No Motor Deficit - DERM Integumentary: Warm, Dry, No Rash Course - Re-evaluation Re-evalutation: 07/31/18 11:49 Patient with a known history of arthritis involving the right knee joint. Patient does have mild effusion. No concern for septic arthritis, no concern for DVT at this time. Patient has been on tramadol in the past and currently has an active prescription that would be refilled on August 12. - Vital Signs Vital signs: Temp Pulse Resp BP Pulse Ox 98.3 F 65 18 140/84 H 100 07/31/18 10:54 07/31/18 10:54 07/31/18 10:54 07/31/18 10:54 07/31/18 10:54 Procedures - Immobilization Right Knee Pre-Proc Neuro Vasc Exam: Normal Immobilizer type: Ricardo wrap Performed by: PCT Post-Proc Neuro Vasc Exam: Normal Alignment checked and good: Yes Discharge - Discharge Clinical Impression: Chronic knee pain Qualifiers: Laterality: right Qualified Code(s): M25.561 - Pain in right knee Condition: Stable Disposition: HOME, SELF-CARE Instructions: Arthritis ([facility]), Steroid Medication Additional Instructions: Return immediately for any new or worsening symptoms Followup with your primary care provider, call tomorrow to make a followup appointment See your primary doctor to refill your tramadol Follow-up with orthopedics for further evaluation of your knee joint pain. Prescriptions: Lidocaine [Lidoderm 5% (700 mg) Transdermal Patch] 1 patch TP DAILY PRN #10 adh..patch PRN Reason: Prednisone [Deltasone 20 mg Tablet] 2 tab PO DAILY 4 Days tablet Forms: Return to Work Referrals: ARTHUR JENSEN PA-C [Primary Care Provider] - Follow up as needed [facility] [Provider Group] - Follow up as needed
== END 2018-07-31 12:04 | disposition home or self-care (01) ==
LOC: ER 10:52
DX: G89.29 Other chronic pain (principal); M25.561 Pain in right knee; M17.11 Unilateral primary osteoarthritis, right knee; M25.461 Effusion, right knee; I10 Essential (primary) hypertension; J45.909 Unspecified asthma, uncomplicated; Z87.828 Personal history of other (healed) physical injury and trauma
CPT/HCPCS: 99283; J7512

== ENCOUNTER 2018-08-04 10:45 | Emergency (ER) | payer SELFPAY ==
[2018-08-04] MEDS ORDERED: TETRACAINE HCL 0.5% OPH SOLN 4 ML OD ONE (11:11)
--- NOTE | 2018-08-04 11:13 | ER Document Report ---
ED Medical Screen (RME) - General Chief Complaint: Eye Problem Stated Complaint: EYE PAIN Time Seen by Provider: 08/04/18 11:09 Primary Care Provider: ARTHUR JENSEN PA-C [Primary Care Provider] - Follow up as needed Mode of Arrival: Ambulatory Information source: Patient Notes: Patient presents to the emergency department with complaints of right eye pain. Reports started 0600 this morning. She took her contacts out. Reports she can see but it hurts when she looks at the sun. I have greeted and performed a rapid initial assessment of this patient. A co mprehensive ED assessment and evaluation of the patient, analysis of test results and completion of the medical decision making process will be conducted by additional ED providers. Dictation of this chart was performed using voice recognition software; therefore, there may be some unintended grammatical errors. TRAVEL OUTSIDE OF THE [place] IN LAST 30 DAYS: No - Related Data Allergies/Adverse Reactions: ketorolac tromethamine [From Toradol] Allergy (Intermediate, Verified 08/04/18 10:50) Urticaria Penicillins Allergy (Intermediate, Verified 08/04/18 10:50) Hives hydrocodone [From Vicodin] Allergy (Verified 08/04/18 10:50) ibuprofen Allergy (Verified 08/04/18 10:50) Past Medical History - Past Medical History Cardiac Medical History: Reports: Hx Hypertension Pulmonary Medical History: Reports: Hx Asthma Neurological Medical History: Denies: Hx Seizures Renal/ Medical History: Reports: Hx Ovarian Cysts. Denies: Hx Peritoneal Dialysis GI Medical History: Reports: Hx Gastroesophageal Reflux Disease. Denies: Hx Hepatitis Musculoskeltal Medical History: Reports Hx Arthritis, Reports Hx Musculoskeletal Trauma Psychiatric Medical History: Reports: Hx Anxiety, Hx Bipolar Disorder, Hx Depression, Hx Schizophrenia Traumatic Medical History: Reports: Hx Fractures Infectious Medical History: Denies: Hx Hepatitis Past Surgical History: Reports: Hx Section - c- sect x1, Hx Cholecystectomy - Immunizations Immunizations up to date: Yes Hx Diphtheria, Pertussis, Tetanus Vaccination: Yes Physical Exam - Vital signs Vitals: Temp Pulse Resp BP Pulse Ox 98.7 F 59 L 18 142/71 H 100 08/04/18 11:02 08/04/18 11:02 08/04/18 11:02 08/04/18 11:02 08/04/18 11:02 Course - Vital Signs Vital signs: Temp Pulse Resp BP Pulse Ox 98.7 F 59 L 18 142/71 H 100 08/04/18 11:02 08/04/18 11:02 08/04/18 11:02 08/04/18 11:02 08/04/18 11:02 Doctor's Discharge - Discharge Referrals: ARTHUR JENSEN PA-C [Primary Care Provider] - Follow up as needed
[2018-08-04] MEDS ORDERED: CIPROFLOXACIN HCL 0.3% OPH SOLN 2.5 ML OU ONE (12:09)
--- NOTE | 2018-08-04 13:00 | ER Document Report ---
ED General - General Chief Complaint: Eye Problem Stated Complaint: EYE PAIN Time Seen by Provider: 08/04/18 11:09 Primary Care Provider: ARTHUR JENSEN PA-C [NO LOCAL MD] - Follow up as needed Mode of Arrival: Ambulatory TRAVEL OUTSIDE OF THE [place] IN LAST 30 DAYS: No - HPI Notes: Patient is a 48-year-old female presents emergency department for evaluation of eye pain. She states her right eye hurts worse than her left. It all started this morning. She states she woke up and she was exceptionally congested. She states she had a "cold in her head." She states that since then she has had her eye as well as photophobia. She denies any recent fevers or chills. She states her vision has been blurred. She denies diplopia. No head trauma. She did sleep in her contact lenses. She is unsure as to whether or not her contact lenses are extended wear. Does have an director database. - Related Data Allergies/Adverse Reactions: ketorolac tromethamine [From Toradol] Allergy (Intermediate, Verified 08/04/18 10:50) Urticaria Penicillins Allergy (Intermediate, Verified 08/04/18 10:50) Hives hydrocodone [From Vicodin] Allergy (Verified 08/04/18 10:50) ibuprofen Allergy (Verified 08/04/18 10:50) Past Medical History - General Information source: Patient - Social History Smoking Status: Current Every Day Smoker Family History: Reviewed & Not Pertinent, CAD Patient has suicidal ideation: No Patient has homicidal ideation: No - Past Medical History Cardiac Medical History: Reports: Hx Hypertension Pulmonary Medical History: Reports: Hx Asthma Neurological Medical History: Denies: Hx Seizures Renal/ Medical History: Reports: Hx Ovarian Cysts. Denies: Hx Peritoneal Dialysis GI Medical History: Reports: Hx Gastroesophageal Reflux Disease. Denies: Hx Hepatitis Musculoskeletal Medical History: Reports Hx Arthritis, Reports Hx Musculoskeletal Trauma Psychiatric Medical History: Reports: Hx Anxiety, Hx Bipolar Disorder, Hx Depression, Hx Schizophrenia Traumatic Medical History: Reports: Hx Fractures Infectious Medical History: Denies: Hx Hepatitis Past Surgical History: Reports: Hx Section - c- sect x1, Hx Cholecystectomy - Immunizations Immunizations up to date: Yes Hx Diphtheria, Pertussis, Tetanus Vaccination: Yes Review of Systems - Review of Systems Constitutional: No symptoms reported EENT: See HPI Cardiovascular: No symptoms reported Respiratory: No symptoms reported Gastrointestinal: No symptoms reported Genitourinary: No symptoms reported Musculoskeletal: No symptoms reported Skin: No symptoms reported Neurological/Psychological: No symptoms reported Physical Exam - Vital signs Vitals: Temp Pulse Resp BP Pulse Ox 98.7 F 59 L 18 142/71 H 100 08/04/18 11:02 08/04/18 11:02 08/04/18 11:02 08/04/18 11:02 08/04/18 11:02 - Notes Notes: Vital signs reviewed, please refer to chart. Head is normocephalic, atraumatic. Examination of the eye yields very mild erythema to the right eye conjunctive a, no significant conjunctival erythema on the left. No purulent discharge noted. Extraocular muscles are intact. Slit-lamp exam is performed. No anterior chamber abnormalities. Normal optic disc. Floor seen staining is performed, no clear abrasion or ulceration was noted. Patient was, however, significantly uncomfortable with shining of the light in her right eye for exam. Neck is supple without meningismus. Heart is regular rate and rhythm. Lungs are clear to auscultation bilaterally. Abdomen is soft, nontender, normoactive bowel sounds throughout. Extremities without cyanosis, clubbing. Posterior calves are nontender. Peripheral pulses are equal. Skin is warm and dry. Patient is awake, alert, neurological exam is nonfocal. - HEENT Visual acuity- Right eye: 20/25 Visual acuity- Left eye: 20/25 Visual acuity- Both eyes: 20/25 Corrective lenses worn: Yes Course - Re-evaluation Re-evalutation: 08/04/18 13:01 Patient presents emergency department for evaluation. She has had URI symptoms this morning, has mild conjunctival erythema noted on the right. My concern, however, is a degree of photophobia she seems to be exhibiting. I am concerned about the possibility of a coexistent viral keratitis or a very early corneal ulcer that I cannot visualize. The patient does already have an eye doctor. She is advised that she should not be using her contact lenses at all until cleared by ophthalmology. She started on Cipro drops. I will also write her for Cipro ointment for at night. She is to follow-up with her eye doctor on Monday. She is to return to the ED with worsening or new concerning symptoms of any sort. - Vital Signs Vital signs: Temp Pulse Resp BP Pulse Ox 98.1 F 51 L 22 H 118/91 H 100 08/04/18 13:16 08/04/18 13:16 08/04/18 13:16 08/04/18 13:16 08/04/18 13:16 Discharge - Discharge Clinical Impression: Conjunctivitis Condition: Stable Disposition: HOME, SELF-CARE Instructions: Conjunctivitis ([facility]), Eyedrop Use ([facility]) Additional Instructions: Use Cipro eyedrops, 1 to 2 drops in each eye every 2 hours while awake. Use the Cipro ointment at night in bilateral eyes. Do not wear your contact lenses until cleared by ophthalmology. Follow-up with your eye doctor on Monday. If you develop worsening or new concerning symptoms of any sort, return immediately to the emergency department for reevaluation. Prescriptions: RX: Ciprofloxacin HCl [Ciloxan 0.3% Oph Ointment 3.5 gm] 1 applic OU QHS #1 tube Referrals: ARTHUR JENSEN PA-C [NO LOCAL MD] - Follow up as needed
[2018-08-04 13:18] VITALS: BP 118/91
== END 2018-08-04 13:20 | disposition home or self-care (01) ==
LOC: ER 10:45
DX: H10.9 Unspecified conjunctivitis (principal); H57.12 Ocular pain, left eye; R09.81 Nasal congestion; F17.200 Nicotine dependence, unspecified, uncomplicated; I10 Essential (primary) hypertension; J45.909 Unspecified asthma, uncomplicated
CPT/HCPCS: 99283; J3490 ×2